=== PATIENT | female | born 1960 | race Caucasian/White ===

== ENCOUNTER 2018-01-06 06:56 | Outpatient (CLI) | payer BC ==
--- NOTE | 2018-01-06 07:53 | ULT ---
SONOGRAM ABDOMEN COMPLETE: HISTORY: Upper abdomen pain. FINDINGS: Gallbladder has a normal appearance. The common duct is 0.4 cm. Liver has a homogeneous echotexture . No focal mass or intrahepatic biliary dilatation. No free fluid. Spleen is 9.1 cm with a normal appearance. Kidneys and visualized portions of the abdominal aorta and IVC are unremarkable. Pancreas mostly obs cured. IMPRESSION: No significant abnormalities are demonstrated. Spleen and liver are within normal limits. POS: [facility]
== END 2018-01-06 06:57 | disposition home or self-care (01) ==
LOC: SCSULT 06:56
PROVIDERS: ATTEND Internal Medicine Medical Oncology
DX: D72.818 Other decreased white blood cell count (principal); R16.1 Splenomegaly, not elsewhere classified
CPT/HCPCS: 76700

== ENCOUNTER 2018-01-13 08:11 | Outpatient (CLI) | payer BC | END 2018-01-13 08:12 | disposition home or self-care (01) | LOC: BICMAMMO 08:11 | PROVIDERS: ATTEND Family Medicine | DX: Z12.31 Encounter for screening mammogram for malignant neoplasm of breast (principal) | CPT/HCPCS: 77063; 77067 ==

== ENCOUNTER 2025-05-07 10:25 | Outpatient (CLI) | payer BC | END 2025-05-07 10:26 | disposition home or self-care (01) | LOC: SCSRAD 10:25 | PROVIDERS: ATTEND Family Medicine | DX: R10.9 Unspecified abdominal pain (principal); R19.5 Other fecal abnormalities | CPT/HCPCS: 74018 ==